=== PATIENT | female | born 1980 | race Caucasian/White ===

== ENCOUNTER 2017-02-09 20:02 | Emergency (ER) | payer MEDICAID, SELFPAY ==
[~2017-02-09] VITALS: Ht 165.1 cm; Wt 85.2 kg
[2017-02-09] MEDS ORDERED: SODIUM CHLORIDE 0.9% 1,000 ML IV ONE (20:38)
[2017-02-09] MEDS ORDERED: MAALOX/HYOSCYAMINE/LIDOCAINE 45 ML BOTTLE ONE (20:59)
[2017-02-09] MEDS ORDERED: ONDANSETRON 2MG/ML, 2ML ONE (20:59)
[2017-02-09] MEDS ORDERED: FAMOTIDINE 20 MG/2 ML ONE (20:59)
[2017-02-09] MEDS ORDERED: MORPHINE SULFATE 4 MG/ML, 1ML ONE (20:59)
[2017-02-09] MEDS ORDERED: FAMOTIDINE 20 MG/2 ML IVP ONE (21:00)
[2017-02-09] MEDS ORDERED: MORPHINE SULFATE 4 MG/ML, 1ML IVPush PRN (21:00)
[2017-02-09] MEDS ORDERED: ONDANSETRON 2MG/ML, 2ML IVPush ONE (21:00)
[2017-02-09] MEDS ORDERED: MAALOX/HYOSCYAMINE/LIDOCAINE 45 ML BOTTLE PO ONE (21:00)
[2017-02-09 21:08] VITALS: BP 123/67
[2017-02-09 21:12] LABS: ASPARTATE AMINO TRANSFERASE 20 U/L (15-37); BLOOD UREA NITROGEN 20 mg/dL (7-18)
== END 2017-02-09 22:09 | disposition home or self-care (01) ==
LOC: ED 21:53
DX: K21.0 Gastro-esophageal reflux disease with esophagitis (principal)
CPT/HCPCS: 36415; 76700; 80053; 81001; 83690; 85025; 85610; 86677; 93005; 96361; 96374; 96375; 99285; J2405; J7030; S0028

== ENCOUNTER 2017-02-17 12:57 | Emergency (ER) | payer MEDICAID ==
[~2017-02-17] VITALS: Ht 165.1 cm; Wt 84.8 kg
[2017-02-17] MEDS ORDERED: MORPHINE SULFATE 4 MG/ML, 1ML IVPush PRN (14:00)
[2017-02-17] MEDS ORDERED: SODIUM CHLORIDE FLUSH 10ML SYR IVF ONE (14:00)
[2017-02-17] MEDS ORDERED: ONDANSETRON 2MG/ML, 2ML IVPush ONE (14:00)
[2017-02-17 14:28] LABS: ASPARTATE AMINO TRANSFERASE 20 U/L (15-37); BLOOD UREA NITROGEN 16 mg/dL (7-18)
[2017-02-17 17:36] VITALS: BP 126/71
== END 2017-02-17 17:38 | disposition home or self-care (01) ==
LOC: ED 17:30
DX: R10.11 Right upper quadrant pain (principal); K82.8 Other specified diseases of gallbladder
CPT/HCPCS: 36415; 78227; 80053; 81001; 83690; 84703; 85025; 87086; 99285; A9537